=== PATIENT | male | born 1975 | race Caucasian/White ===

== ENCOUNTER 2024-08-24 12:24 | Inpatient (IN) | payer BC ==
[~2024-08-24] VITALS: Ht 185.4 cm; Wt 96.5 kg
[~2024-08-24 12:24] MED LIST: CODACE30 PO; Flomax0.4 MG PO; GUAI600T33; MULVITA; OXYACE5T PO; OXYACE7.5T PO; PROM25 PO; PROM25S PR; Percocet 5-3251 EACH PO; RXOXYACE PO; Zofran Odt8 MG SL
[2024-08-24] MEDS ORDERED: Ondansetron HCl 2 MG / ML 2ML Vial IV PRN ×2 (12:35→16:35)
[2024-08-24 13:00] LABS: BASOPHILS ABSOLUTE AUTO 0.06 K/mm3 (0.00-0.23); BASOPHILS PERCENT AUTO 0 % (0-2); EOSINOPHILS ABSOLUTE AUTO 0.01 K/mm3 (0.00-0.68); EOSINOPHILS PERCENT AUTO 0 % (0-6); Hematocrit 38.7 % (37.0-53.0); Hemoglobin 13.7 g/dL (13.5-17.5); IMMATURE GRAN ABSOLUTE AUTO 0.14 K/mm3 (0.00-0.10); IMMATURE GRAN PERCENT AUTO 1 % (0-1); LYMPHOCYTES ABSOLUTE AUTO 1.14 K/mm3 (0.84-5.20); LYMPHOCYTES PERCENT AUTO 5 % (21-46); MONOCYTES ABSOLUTE AUTO 1.58 K/mm3 (0.16-1.47); MONOCYTES PERCENT AUTO 7 % (4-13); Mean Corpuscular HGB Conc 35.4 g/dL (31.5-36.5); Mean Corpuscular Volume 88 fL (80-100); Mean Platelet Volume 9.8 fL (9.1-12.4); NEUTROPHILS ABSOLUTE AUTO 20.59 K/mm3 (1.96-9.15); NEUTROPHILS PERCENT AUTO 88 % (41-73); Platelet Count 318 K/mm3 (150-400); RDW Coefficient Variation 12.4 % (11.7-14.2); RDW Standard Deviation 39.7 fL (35.1-46.3); Red Blood Cell Count 4.42 M/mm3 (4.30-5.90); White Blood Cell Count 23.52 K/mm3 (4.00-11.30)
[2024-08-24] MEDS ORDERED: NS 1,000 ML IV SCH (13:05)
[2024-08-24 13:30] LABS: Albumin, Blood 3.6 g/dL (3.4-5.0); Albumin/Globulin Ratio 0.8 (0.8-1.8); Bilirubin, Total 2.1 mg/dL (0.1-1.0); Bun/Creatinine Ratio 17.8 (12.0-20.0); Calcium, Blood 9.4 mg/dL (8.5-10.1); Creatinine, Blood 1.01 mg/dL (0.60-1.20); Globulin, Blood 4.6 g/dL (2.2-4.0); Potassium, Blood 3.5 mmol/L (3.5-5.5); Total Protein, Blood 8.2 g/dL (6.4-8.2)
[2024-08-24] MEDS ORDERED: Piperacillin/Tazobactam Sod 2.25 GM in NS 50 ML IV ONE (14:50)
[2024-08-24 15:54] LABS: Source, Urine Clean Catch
[2024-08-24 16:03] LABS: Appearance, Urine Clear (Clear); Bilirubin, Urine Neg (Neg); Blood, Urine 1+ (Neg); Color, Urine Yellow (P-Yellow); Glucose Qualitative, Urine Neg (Neg); Ketones, Urine Neg (Neg); Leukocyte Esterase, Urine Neg (Neg); Nitrite, Urine Neg (Neg); Protein, Urine 2+ (Neg); Specific Gravity, Urine 1.005 (1.003-1.022); Urobilinogen, Urine 1+ (Normal); pH, Urine 6.5 (5.0-8.0)
[2024-08-24 16:28] LABS: Bacteria Few /hpf; Squamous Epithelial Cells Rare /hpf (Few); White Blood Cells, Urine 0-2 /hpf (0-5)
[2024-08-24] MEDS ORDERED: FentaNYL Citrate 50 MCG/ML 2 ML Injection IV PRN (16:35)
[2024-08-24] MEDS ORDERED: Lactated Ringer's 1,000 ML IV SCH (17:00)
[2024-08-24 18:09] VITALS: BP 159/101
[2024-08-24] MEDS ORDERED: Acetaminophen 325 MG TABLET PO PRN (18:45)
[2024-08-24] MEDS ORDERED: OxyCODONE HCL 5 MG TAB PO PRN (18:45)
--- NOTE | 2024-08-24 19:12 | NUR ---
SHIFT SUMMARY: PATIENT ARRIVED TO UNIT AT 1800. PATIENT ALERT AND ORIENTED X 4. PATIENT STABLE ON HIS FEET WITH TRANSFER. PATIENT DENIED DIZZINESS, SHORTNESS OF BREATH OR ACUTE NAUSEA AT THIS TIME. ABDOMINAL PAIN AT A 4. DISCUSSED WITH DR. SANCHEZ AND RECEIVED ADDITIONAL ORDERS FOR PRN PAIN MEDICATIONS. PATIENT'S ABD MILDLY DISTENDED, MILDLY FIRM AND TENDER. VITALS STABLE WITH MAPS >65. PATIENT DOES HAVE A MILD FEVER 101.0. DR. SANCHEZ NOTIFIED AND NEW ORDERS RECEIVED. LACTATED RINGERS STARTED AT 75 ML/HR PER ORDERS. PATIENT REPORTED THAT HE HAS NOT HAD DIFFICULTY VOIDING. PATIENT RESTING IN BED. CALL LIGHT WITHIN REACH.
[2024-08-24] MEDS ORDERED: Piperacillin/Tazobactam Sod 3.375 GM in NS 100 ML IV SCH (21:00)
[2024-08-24 22:35] VITALS: BP 137/84
[2024-08-25 03:11] VITALS: BP 140/94
[2024-08-25 05:17] LABS: Hemoglobin 12.4 g/dL (13.5-17.5); Mean Corpuscular HGB 30.5 pg (26.0-34.0); Mean Corpuscular HGB Conc 34.4 g/dL (31.5-36.5); Mean Corpuscular Volume 89 fL (80-100); Mean Platelet Volume 9.4 fL (9.1-12.4); Platelet Count 270 K/mm3 (150-400); RDW Coefficient Variation 12.6 % (11.7-14.2); RDW Standard Deviation 41.1 fL (35.1-46.3); Red Blood Cell Count 4.07 M/mm3 (4.30-5.90); White Blood Cell Count 19.04 K/mm3 (4.00-11.30)
[2024-08-25 05:35] LABS: Bun/Creatinine Ratio 15.1 (12.0-20.0); Calcium, Blood 8.7 mg/dL (8.5-10.1); Creatinine, Blood 1.06 mg/dL (0.60-1.20); Potassium, Blood 3.6 mmol/L (3.5-5.5)
[2024-08-25 07:37] VITALS: BP 144/91
--- NOTE | 2024-08-25 08:15 | NUR ---
SUMMARY PT REMAINS NPO PENDING BEING SEEN BY SURGERY.WBC TRENDING DOWN.PT VOIDING, BUT HAS NOT USED URINAL.ENCOURAGED USE OF URINAL FOR ACCURATE I/O.
[2024-08-25] MEDS ORDERED: OxyCODONE HCL 5 MG TAB PO PRN (09:00)
[2024-08-25] MEDS ORDERED: NS 250 ML IV PRN (09:55)
--- NOTE | 2024-08-25 09:59 | NUR ---
Pt. is awake in bed and welcomes my visit. Pt. is known to this supervisory historian from the community. Facilitated an update. Pt. displayed evidence of being annoyed by his diagnosis, but welcomed the visit. Pt. verbalized concern about taking care of things at home. Prayed with Pt. Pt. verbalized gratitude for the spiritual care visit.
[2024-08-25 11:13] VITALS: BP 150/89
--- NOTE | 2024-08-25 12:55 | NUR ---
REPORT RECEIVED FROM ZIA PARDO AT ABOUT 1230 AND ASSUMED CARE. UPON ASSESSMENT WITH ROUNDING PT IS SLEEPING AND AWAKES TO VOICE, ANSWERS QUESTIONS. ABD IS DISTENDED AND SOFT PT REPORTS THE DISTENION IS BETTER TODAY. PT DENIES N/V OR PAIN AT THIS TIME. REPORTS PASSING GAS. PT IS NPO AND LR INFUSING. CALL LIGHT IN REACH. PT INDEP IN ROOM AND MAKES NEEDS KNOWN.
[2024-08-25 15:13] VITALS: BP 145/90
--- NOTE | 2024-08-25 18:21 | NUR ---
SHIFT SUMMARY PT IS EXPERIENCING LOWER ABDOMINAL DISCOMFORT. PT DENIES PAIN, N/V, AND SOB. VITAL SIGNS ARE STABLE. PT IS NPO WITH THE POSSIBILITY OF SURGERY. PT VOIDED DARK URINE IN URINAL. HE IS INDEPENDENT IN ROOM. CALL LIGHT WITHIN REACH.
[2024-08-25 19:50] VITALS: BP 138/96
[2024-08-26 03:10] VITALS: BP 132/83
--- NOTE | 2024-08-26 04:30 | NUR ---
SHIFT SUMMARY PT IRRITABLE @BEGINNING OF SHIFT REGARDING BEING ADMITTED & NOT ABLE TO GO HOME UNLESS DC'D. STATES WANTING TO GO [employer]OTHING & FEED ANIMALS, STATES "I FEEL LIKE IM IN SENIOR CARE." DISCUSSED THE IMPORTANCE OF STAYING TO IMPROVE HIS HEALTH, PT AGREEABLE TO STAY AT THIS TIME. AOX4. VSS. VOIDING ODOROUS DRK NORI URINE. DENIES PAIN. REPORTS PASSING FLATUS & STATES EVERYTIME HE ENDS UP "PEEING OUT BUTT." HAS REPORTED 5+ SM LIQUID ORANGE BM. DENIES N/V. HAS BEEN NPO EXCEPT MIN ICE CHIPS. HAD SHOWER TONIGHT. CALL LIGHT IN REACH.
[2024-08-26 07:24] VITALS: BP 156/101
[2024-08-26 09:25] LABS: Hematocrit 34.1 % (37.0-53.0); Hemoglobin 11.8 g/dL (13.5-17.5); Mean Corpuscular HGB 30.8 pg (26.0-34.0); Mean Corpuscular HGB Conc 34.6 g/dL (31.5-36.5); Mean Corpuscular Volume 89 fL (80-100); Mean Platelet Volume 9.2 fL (9.1-12.4); Platelet Count 274 K/mm3 (150-400); RDW Coefficient Variation 12.8 % (11.7-14.2); RDW Standard Deviation 41.9 fL (35.1-46.3); Red Blood Cell Count 3.83 M/mm3 (4.30-5.90); White Blood Cell Count 14.05 K/mm3 (4.00-11.30)
[2024-08-26 14:34] VITALS: BP 157/101
--- NOTE | 2024-08-26 17:45 | NUR ---
SHIFT SUMMARY PT ADMITTED ON 08/24/24 DIVERTICULITIS W/PERF. A&O X4. TOLERATING CLEAR LIQUID DIET. DENIES N&V. PT DENIES PAIN. PT INDEPENDENT IN ROOM. MAKES NEEDS KNOWN. CONSERVATIVE MANAGEMENT WITH IV ANTIBIOTIC THERAPY PER PHYSICIAN ORDER. PT MEDICATED PER EMAR. PLAN TO INCREASE DIET IN THE AM IF PATIENT STILL TOLERATING DIET.
[2024-08-26 19:38] VITALS: BP 141/92
[2024-08-27 03:59] VITALS: BP 150/99
[2024-08-27 04:40] LABS: Hematocrit 35.3 % (37.0-53.0); Hemoglobin 12.1 g/dL (13.5-17.5); Mean Corpuscular HGB 30.8 pg (26.0-34.0); Mean Corpuscular HGB Conc 34.3 g/dL (31.5-36.5); Mean Corpuscular Volume 90 fL (80-100); Mean Platelet Volume 9.3 fL (9.1-12.4); Platelet Count 319 K/mm3 (150-400); RDW Coefficient Variation 12.7 % (11.7-14.2); RDW Standard Deviation 42.2 fL (35.1-46.3); Red Blood Cell Count 3.93 M/mm3 (4.30-5.90); White Blood Cell Count 12.68 K/mm3 (4.00-11.30)
[2024-08-27 05:03] LABS: Bun/Creatinine Ratio 12.9 (12.0-20.0); Calcium, Blood 8.7 mg/dL (8.5-10.1); Creatinine, Blood 0.93 mg/dL (0.60-1.20); Potassium, Blood 3.1 mmol/L (3.5-5.5)
--- NOTE | 2024-08-27 05:20 | NUR ---
SHIFT SUMMARY AOX4. VSS. PT REPORTS 2/ ABD PRESSURE BUT STATES PAIN IS TOLERABLE & WAY BETTER THAN WHEN HE FIRST CAME TO HOSPITAL, DENIES NEED FOR PAIN MEDICATION. DENIES N/V. TOLERATING CLEAR LIQUIDS. REPORTS APPROX 6 SM LIQUID ORANGE STOOL. PASSING FLATUS. CALL LIGHT IN REACH & PT ABLE TO MAKE NEEDS KNOWN.
[2024-08-27 07:29] VITALS: BP 150/103
[2024-08-27] MEDS ORDERED: Potassium Chloride 40 MEQ in NS 250 ML IV ONE (08:25)
[2024-08-27] MEDS ORDERED: Acetaminophen325 M1 PO (12:42)
[2024-08-27] MEDS ORDERED: AMOCLA875 PO (12:43)
[2024-08-27] MEDS ORDERED: VISBIOME 112.51 EACH PO (12:43)
[2024-08-27] MEDS ORDERED: LOSA25 PO (12:43)
--- NOTE | 2024-08-27 14:26 | NUR ---
DISCHARGE SUMMARY PT ADMITTED ON 08/24/24 DIVERTICULITIS WITH PERF. DENIES PAIN. PT A&O X4. PT TOLERATING DIET. DENIES N&V. MEDICATIONS CALLED INTO [facility] PER PT REQUEST. PROVIDED DISCHARGE INSTRUCTIONS AND EDUCATION. PT DEMONSTRATED UNDERSTANDING AND ALL QUESTIONS WERE ANSWERED. PT ACCOMPANIED OUT VIA WHEELCHAIR.
== END 2024-08-27 14:21 | disposition home or self-care (01) | DRG 872 ==
LOC: ER 12:24 → SURS 16:32 → MEDS 16:32 → SURS 17:47
PROVIDERS: Emergency Medicine; ADMIT Internal Medicine
DX: A41.9 Sepsis, unspecified organism (principal); K57.20 Diverticulitis of large intestine with perforation and abscess without bleeding; E87.1 Hypo-osmolality and hyponatremia; I10 Essential (primary) hypertension; E66.9 Obesity, unspecified; E87.6 Hypokalemia; F10.20 Alcohol dependence, uncomplicated; Z87.442 Personal history of urinary calculi; Z79.899 Other long term (current) drug therapy; Z79.891 Long term (current) use of opiate analgesic; Z68.28 Body mass index [BMI] 28.0-28.9, adult
CPT/HCPCS: 36415; 74177; 80048; 80053; 81001; 83605; 83690; 85025; 85027; 96361; 96365-59; 96375; 99285-25; A9270; J2405; J2543; J3010; J3480; J7030; J7050; J7120; Q9967

== ENCOUNTER 2024-11-07 06:49 | Day surgery (SDC) | payer BC ==
[~2024-11-07] VITALS: Ht 185.4 cm; Wt 96.3 kg
[~2024-11-07 06:49] MED LIST changes: +AMOCLA875 PO; +Acetaminophen325 M1 PO; +LOSA25 PO; +VISBIOME 112.51 EACH PO
[2024-11-07] MEDS ORDERED: OMEP20ER (07:43)
[2024-11-07 10:25] VITALS: BP 161/121
--- NOTE | 2024-11-07 10:32 | NUR ---
11/07/24 1032 Selma Constantino CONSULTED WITH BOTH DR MORAN AND DR ABURTO REGARDING PT'S ELEVATED BP. DR MORAN ADVISED THAT PATIENT OKAY TO BE SENT HOME BUT NEEDS TO FOLLOW UP WITH PCP. DR ABURTO ADVISED TO HAVE PT TRY USING BATHROOM AND RECHECK BP. PT UP TO BATHROOM AND PER PT HE WAS ABLE TO VOID A LITTLE AND DID PASS GAS. BP RECHECKED BUT STILL ELEVATED. DR ABURTO CAME TO PT'S ROOM AND TALKED TO PATIENT REGARDING INCREASED RISK OF HEART ATTACK AND STROKE WHEN BP IS THIS ELEVATED. PT REPORTED HE DOES NOT CURRENTLY HAVE A PCP. DR ABURTO GAVE PATIENT VARIOUS CLINIC NAMES THAT HE MAY ESTABLISH CARE WITH AND ADVISED PATIENT TO DO THIS KOURTNEY SO THAT BP MANAGEMENT CAN BEGIN SOON POSSIBLE. SHE ASKED PATIENT IF HE UNDERSTOOD WHAT HE WAS BEING TOLD AND HAD HIM REPEAT BACK TO HER AND HE VERBALIZED UNDERSTANDING OF ALL CONCERNS AND RECOMMENDATIONS. HE VERBALIZED THAT HE WILL FIND A PCP REGARDING HIS ELEVATED BP. PER DR ABURTO, OKAY TO DISCHARGE PT HOME. THIS RN REITERATED TO PATIENT IMPORTANCE OF FINDING PCP IMMEDIATELY AND HE VERBALIZED UNDERSTANDING.
== END 2024-11-07 10:11 | disposition home or self-care (01) ==
LOC: ORSCSDS 06:49
PROVIDERS: Surgery
PROC: 0DBN8ZX Excision of Sigmoid Colon, Via Natural or Artificial Opening Endoscopic, Diagnostic (ICD-10-PCS; principal; 2024-11-07 08:30)
PROC: 0DBP8ZX Excision of Rectum, Via Natural or Artificial Opening Endoscopic, Diagnostic (ICD-10-PCS; principal; 2024-11-07 08:30)
PROC: 0DBM8ZX Excision of Descending Colon, Via Natural or Artificial Opening Endoscopic, Diagnostic (ICD-10-PCS; principal; 2024-11-07 08:30)
DX: K57.30 Diverticulosis of large intestine without perforation or abscess without bleeding (principal); K52.89 Other specified noninfective gastroenteritis and colitis; K62.1 Rectal polyp; D12.5 Benign neoplasm of sigmoid colon; K63.5 Polyp of colon; I10 Essential (primary) hypertension; E66.9 Obesity, unspecified; Z68.25 Body mass index [BMI] 25.0-25.9, adult; Z79.899 Other long term (current) drug therapy
CPT/HCPCS: 88305; J2704; J7120

== ENCOUNTER 2025-03-08 14:02 | Emergency (ER) | payer BC | END 2025-03-08 18:19 | disposition home or self-care (01) | LOC: ER 14:02 | DX: L03.115 Cellulitis of right lower limb (principal); R59.0 Localized enlarged lymph nodes ==